=== PATIENT | female | born 1940 | race Caucasian/White ===

== ENCOUNTER 2021-10-28 12:29 | Outpatient (CLI) | payer MEDICARE, SELFPAY ==
--- NOTE | 2021-10-29 11:30 | WPDSIXMINUTE ---
Six Minute Walk Procedure Procedure Performed Pulmonary Stress Test (6 min walk) Six Minute Walk This 6 minute walk test was carried out with the patient breathing room air. Pre-walk at rest, the oxyhemoglobin saturation was 99%. The patient walked over 213 m with no stops during the walk. The oxyhemoglobin saturation remained over 90% throughout the walk. The perceived dyspnea at baseline was 0 on the Reyes scale and increased to 3 at the end of the walk. Impression. No evidence of oxyhemoglobin desaturation on this testing.
== END 2021-10-28 12:30 | disposition home or self-care (01) ==
LOC: ANHPFT 12:31
PROVIDERS: PCP Family Medicine; Visit Provider Family Medicine
DX: J44.9 Chronic obstructive pulmonary disease, unspecified (principal)
CPT/HCPCS: 94618

== ENCOUNTER 2021-12-07 13:30 | Outpatient (RCR) | payer MEDICARE, SELFPAY ==
[2021-10-29 15:48] VITALS: PULSE 78
== END 2021-12-10 16:00 | disposition home or self-care (01) ==
LOC: ANHCPREHAB 13:30
PROVIDERS: PCP Family Medicine; Referring Provider Internal Medicine Pulmonary Disease; Visit Provider Internal Medicine Pulmonary Disease
DX: J43.9 Emphysema, unspecified (principal)
CPT/HCPCS: 94625